=== PATIENT | female | born 1990 | race Caucasian/White ===

== ENCOUNTER 2021-01-31 14:20 | Outpatient (REF) | payer SELFPAY ==
[2021-01-31 15:34] LABS: HCT 40.2 % (36.0-46.0); MCH 29.3 pg (27.0-33.0); MCHC 32.3 % (32.0-36.0); MCV 90.7 fL (80-95); MPV 11.8 fL (8.0-11.0); Platelet Count 221 10^3/uL (130-400); RBC 4.43 10^6/uL (3.93-5.22); RDW 12.5 % (11.7-14.6); RDW-SD 41.3 fL; WBC 6.58 10^3/uL (4.4-10.8)
[2021-01-31 16:09] LABS: ALT 21 U/L (14-59); AST 14 U/L (15-37); Alkaline Phosphatase 57 U/L (46-116); Anion Gap 8.2 mmol/L (3-11); BUN 10 mg/dL (7-18); Bilirubin, Total 0.8 mg/dL (0.2-1.0); CO2 29.8 mmol/L (21.0-32.0); CREATININE 0.8 mg/dL (0.55-1.02); Chloride 104 mmol/L (98-107); Glucose 88 mg/dL (74-106); Potassium 4.1 mmol/L (3.5-5.1); Sodium 142 mmol/L (136-145); TSH (W/Ref FT4) 3.21 uIU/mL (0.36-3.74); Total Protein 6.9 g/dL (6.4-8.2)
== END 2021-01-31 14:21 | disposition home or self-care (01) ==
LOC: NCHCN 14:20
PROVIDERS: PCP Nurse Practitioner Family; Visit Provider Nurse Practitioner
DX: R14.0 Abdominal distension (gaseous) (principal); L65.9 Nonscarring hair loss, unspecified; Z83.49 Family history of other endocrine, nutritional and metabolic diseases
CPT/HCPCS: 80053; 85027; 84443

== ENCOUNTER 2022-02-27 04:14 | Outpatient (CLI) | payer MEDICAID, SELFPAY ==
[2022-02-27 16:29] LABS: Abs Immature Grans 0.05 10^3/uL (0.0-0.06); Absolute Basophil Count 0.03 10^3/uL (0.0-0.2); Absolute Eosinophil Count 0.23 10^3/uL (0.0-0.7); Absolute Lymphocyte Count 1.16 10^3/uL (1.2-3.4); Absolute Monocyte Count 0.74 10^3/uL (0.1-0.8); Absolute Neutrophil Count 8.63 10^3/uL (1.2-6.7); Basophils % 0.3; Eosinophils % 2.1; HCT 38.7 % (36.0-46.0); HGB 12.8 g/dL (11.2-15.7); Immature Grans % 0.5; Lymphocytes % 10.7; MCH 29.4 pg (27.0-33.0); MCHC 33.1 % (32.0-36.0); MCV 89 fL (80-95); MPV 12.1 fL (8.0-11.0); Monocytes % 6.8; Neutrophils % 79.6; Platelet Count 177 10^3/uL (130-400); RBC 4.35 10^6/uL (3.93-5.22); RDW 13.6 % (11.7-14.6); RDW-SD 44.5 fL; WBC 10.84 10^3/uL (4.4-10.8)
[2022-02-27 16:56] LABS: TSH (W/Ref FT4) 2.12 uIU/mL (0.36-3.74)
[2022-03-01 10:00] LABS: Hepatitis C Ab w Rflx HCV PCR Negative (Negative)
[2022-03-01 10:10] LABS: HIV-1/2 Ag & Ab Screen Negative (Negative)
[2022-03-01 10:13] LABS: Hepatitis B Surface Ag Negative (Negative)
[2022-03-01 11:39] LABS: Varicella IgG Antibody Positive (See Note)
[2022-03-01 11:43] LABS: Rubella IgG Ab (UVM) Positive (See Note)
[2022-03-02 15:47] LABS: Syphilis IgG w/Reflex Nonreactive (Nonreactive)
== END 2022-02-27 04:15 | disposition home or self-care (01) ==
LOC: LBO 04:15
PROVIDERS: PCP Nurse Practitioner Family; Visit Provider Advanced Practice Midwife
DX: Z34.91 Encounter for supervision of normal pregnancy, unspecified, first trimester (principal); Z83.49 Family history of other endocrine, nutritional and metabolic diseases
CPT/HCPCS: 36415; 86787; 86803; 86850; 86900; 86901; 87340; 87389; 84443; 85025; 86762; 86780

== ENCOUNTER 2022-02-27 15:49 | Outpatient (REF) | payer MEDICAID, SELFPAY ==
--- NOTE | 2022-02-27 15:22 | PAPFT_PTH ---
PATIENT: Anabel Joyner LOC: [facility] U#:[id number] AGE/SX: 31/F ROOM: RE02/27/[address]: Philomena Li CNM : 1990 BED: DIS: 02/27/2022 SPEC #: [id number] RECD: 02/27/22 17:23 STATUS: GEE REQ #: [id number] NICHOLAS: 02/27/22 15:[address]: Philomena Li DEPT: [facility] Cytology RECD BY: Savita Weeks ENTERED: 02/27/22 17:23 SP TYPE: PAPFT OTHR DR: DEMETRICE BROCK NP Tissues: 1 - CX/ENDOCX FOR PAP SMEARS Procedures: PAP THIN PREP/UVM Screening HPV DNA PROBE Comments: [id number]
[2022-02-27 18:50] LABS: *AMPHETAMINES SCREEN URINE Negative (Negative); *BARBITURATES SCREEN URINE Negative (Negative); *BENZODIAZEPINES SCREEN URINE Negative (Negative); Cannabinoids THC Negative (Negative); Cocaine Screen,Urine Negative (Negative); METHADONE URINE SCREEN Negative (Negative); OPIATES URINE SCREEN Negative (Negative)
[2022-02-27 18:53] LABS: Tricyclic Antidepressants Negative (Negative)
[2022-03-01 15:09] LABS: Chlamydia Result Negative (Negative); GC Result Negative (Negative)
[2022-03-10 14:33] LABS: Buprenorphine Negative ng/mL (Cutoff: 5.0); Norbuprenorphine Negative ng/mL (Cutoff: 2.5)
== END 2022-02-27 15:50 | disposition home or self-care (01) ==
LOC: LBN 15:49
PROVIDERS: PCP Nurse Practitioner Family; Visit Provider Advanced Practice Midwife
DX: Z34.91 Encounter for supervision of normal pregnancy, unspecified, first trimester (principal); Z12.4 Encounter for screening for malignant neoplasm of cervix; Z11.51 Encounter for screening for human papillomavirus (HPV); R87.810 Cervical high risk human papillomavirus (HPV) DNA test positive
CPT/HCPCS: 80307; 80348; 87491; 87591; 88142; 87086; 87624

== ENCOUNTER → 2022-03-27 02:39 | Outpatient (CLI) | payer MEDICAID, SELFPAY ==
--- NOTE | 2022-03-27 06:45 | DI.US_ITS ---
Exam(s) US OB 2-3 TRIMESTER EXAM: US OB 2-3 TRIMESTER CLINICAL HISTORY: anatomy US,z34.92. TECHNIQUE: Transabdominal obstetrical ultrasound was performed. COMPARISON: US POCUS EXAM from 02/07/2022 FINDINGS: There is a single viable intrauterine gestation with cardiac activity identified-134 bpm. Amniotic fluid: There is a normal amount of amniotic fluid. Placental location: The placenta is posterior grade 1,with no evidence of placenta previa.Distance fr om the tip of placenta to the internal cervical os is 5 cm on today's study. ANATOMY: A 3 vessel umbilical cord is seen. A four-chamber cardiac view was obtained. Right and left ventricular outflow tracts were imaged. There are no obvious abnormalities of the spinal column evident. There is no obvious abnormal ity of the anterior abdominal wall. stomach and urinary bladder are identified and there is no evidence of hydronephrosis. No abnormalities of the upper lip region are identified. There are small bilateral choroid ple xus cysts in the brain. Dating parameters place this at approximately 18 weeks and 4 days gestational age. BPD measures 18 weeks and 5 days HC measures 18 weeks and 4 days AC measures 18 weeks and 1 day FL measures 18 weeks and 6 days Estimated weight is 243 gm - Fetus is at the 59th percentile on the Hadlock scale. IMPRESSION:: Single viable intrauterine gestation which is approximately 18 weeks and 4 days gestati onal age, implying an YOANNA of August 24, 2022. There are bilateral small choroid plexus cysts noted. Should be repeated in a few weeks time. The p lacenta is posterior with no evidence of placenta previa. There is a normal amount of amniotic fluid. DATA REPOSITORY:
== END ==
PROVIDERS: PCP Nurse Practitioner Family; Visit Provider Advanced Practice Midwife
DX: Z34.92 Encounter for supervision of normal pregnancy, unspecified, second trimester (principal); Z3A.18 18 weeks gestation of pregnancy
CPT/HCPCS: 76805

== ENCOUNTER 2022-04-03 02:49 | Outpatient (CLI) | payer MEDICAID, SELFPAY ==
[2022-04-05 14:48] LABS: AFP 59.7 ng/mL; Calculated age at EDD 34 years; Cigarette smoking status non-Smoker; GA used in risk estimate Dates estimate; INHIBIN 167 pg/mL; IVF Pregnancy No; Initial or repeat testing Initial testing; Insulin dependent diabetes No; Maternal Weight 138 lbs; Number of Fetuses 1; Physician Phone Number 802-748-7300; RECOMMENDED FOLLOW UP None.; Results Summary Normal risk; hCG, TOTAL 45.3 IU/mL; hCG, TOTAL MoM 1.96 MoM; uE3 1.66 ng/mL; uE3 MoM 0.82 MoM
== END 2022-04-03 02:50 | disposition home or self-care (01) ==
LOC: LBO 02:49
PROVIDERS: PCP Nurse Practitioner Family; Visit Provider Advanced Practice Midwife
DX: Z34.92 Encounter for supervision of normal pregnancy, unspecified, second trimester (principal)
CPT/HCPCS: 36415; 81511

== ENCOUNTER 2022-06-05 02:36 | Outpatient (CLI) | payer MEDICAID, SELFPAY ==
[2022-06-05 11:14] LABS: HCT 37.1 % (36.0-46.0); HGB 12.2 g/dL (11.2-15.7); MCH 30.7 pg (27.0-33.0); MCHC 32.9 % (32.0-36.0); MCV 94 fL (80-95); MPV 11.4 fL (8.0-11.0); Platelet Count 155 10^3/uL (130-400); RBC 3.97 10^6/uL (3.93-5.22); RDW 13.2 % (11.7-14.6); RDW-SD 46.1 fL; WBC 9.68 10^3/uL (4.4-10.8)
[2022-06-05 11:27] LABS: Glucose,1 Hr (Glucola) 112 mg/dL (80-140)
== END 2022-06-05 02:37 | disposition home or self-care (01) ==
LOC: LBO 02:36
PROVIDERS: Advanced Practice Midwife; PCP Nurse Practitioner Family; Visit Provider Advanced Practice Midwife
DX: Z34.93 Encounter for supervision of normal pregnancy, unspecified, third trimester (principal)
CPT/HCPCS: 36415; 82950; 85027

== ENCOUNTER 2022-07-24 00:21 | Outpatient (CLI) | payer MEDICAID, SELFPAY ==
--- NOTE | 2022-07-24 07:15 | DI.US_ITS ---
Exam(s) US OB TERESA WEIGHT EXAM: US OB TERESA WEIGHT CLINICAL HISTORY: interval growth,COVID 19,U07.1,Z34.90. TECHNIQUE: Transabdominal obstetrical ultrasound performed. COMPARISON: US US OB 2-3 TRIMESTER from 03/27/2022 FINDINGS: Number of fetuses: 1 position: CEPHALIC Placental location: There is a grade 2-3 placental a on the maternal left side. No evidence of previ a. BIOMETRIC DATA: BPD: 8.68cm, 35weeks HC: 32.09cm, 36weeks 1day AC: 31.86cm, 35weeks 5days FL: 6.67cm, 34weeks 2days EFW: 2,659.74g, 5lb 14.72oz, 46.6% Composite Age: 35weeks 2days YOANNA: 08/26/2022 Heart Rate: 130bpm Amniotic fluid index: 13.99cm. Visually, amount of fluid is within normal limits. IMPRESSION: 1. Single live intrauterine gestation as above. 2. Estimated weight is 2660gms. This is the 47th percentile. 3. Amniotic fluid index is 14 cm. Visually within normal limits. DATA REPOSITORY:
== END 2022-07-24 00:41 ==
LOC: DI 00:22
PROVIDERS: PCP Nurse Practitioner Family; Visit Provider Advanced Practice Midwife
DX: U07.1 COVID-19 (principal); Z34.90 Encounter for supervision of normal pregnancy, unspecified, unspecified trimester
CPT/HCPCS: 76816

== ENCOUNTER 2022-08-02 15:43 | Outpatient (REF) | payer MEDICAID, SELFPAY ==
[2022-08-02 18:33] LABS: *AMPHETAMINES SCREEN URINE Negative (Negative); *BARBITURATES SCREEN URINE Negative (Negative); *BENZODIAZEPINES SCREEN URINE Negative (Negative); Cannabinoids THC Negative (Negative); Cocaine Screen,Urine Negative (Negative); METHADONE URINE SCREEN Negative (Negative); OPIATES URINE SCREEN Negative (Negative)
[2022-08-02 18:34] LABS: Tricyclic Antidepressants Negative (Negative)
[2022-08-10 18:52] LABS: Buprenorphine Negative ng/mL (Cutoff: 5.0); Norbuprenorphine Negative ng/mL (Cutoff: 2.5)
== END 2022-08-02 15:44 | disposition home or self-care (01) ==
LOC: LBN 15:43
PROVIDERS: PCP Nurse Practitioner Family; Visit Provider Advanced Practice Midwife
DX: Z34.93 Encounter for supervision of normal pregnancy, unspecified, third trimester (principal); Z36.85 Encounter for antenatal screening for Streptococcus B; Z3A.36 36 weeks gestation of pregnancy
CPT/HCPCS: 80307; 80348; 87081

== ENCOUNTER 2022-09-01 07:32 | Outpatient (CLI) | payer MEDICAID, SELFPAY ==
[2022-09-01 10:32] VITALS: BP 104/75; PULSE 80; TEMP 36.7
--- NOTE | 2022-09-01 12:07 | W.OBNST ---
Date of service: 09/01/22 Time of Service: 12:07 NST Evaluation Reason for NST Reasons for Nonstress Test: POSTDATES Gestational Age Gestational Age in Weeks and Days: 41 Weeks and 0Days Test and Monitor Explained Test/Monitor Explained: Test Explained, Monitor Explained and Patient Verbalized Understanding Vital Signs Blood Pressure: 104/75 Pulse: 80 Temperature: 98.1 F Urine Results Urine Protein: Negative Urine Ketones: Negative Urine Glucose: Negative Urine Blood: Negative NST Information Date on Monitor: 09/01/22 Time on Monitor: 10:32 Date off Monitor: 09/01/22 Time off Monitor: 11:44 Total Time on Monitor: 72 NST Interventions: PO Hydration NST Evaluation Patient States Movement: Present FHR Baseline: 140 Variability: Moderate 6-25 bpm Accelerations: 15x15 Decelerations: None NST Results: Reactive Note Ultrasound Done: TERESA (postdates) Largest Vertical Pocket: 4.1 Total TERESA: 10.6 Other Pertinent Findings: Heart Rate (131) and Presentation (cephalic, ROP) Coding for TERESA w/NST: Completed Exam. NST Note Note: 41 wks surveillance is reassuring Cvx is unfavorable at ft/th posterior Plan is repeat NST in 3 days, scheduled for IOL on 09/06 NST Reviewed and Verified by: Meredith Alegria
[2022-09-01 12:08] VITALS: BP 104/75; PULSE 80; TEMP 36.7
[2022-09-01 14:59] VITALS: BP 107/67; PULSE 96
[2022-09-03 09:30] VITALS: BP 110/70; PULSE 80
== END 2022-09-01 12:09 | disposition home or self-care (01) ==
LOC: BCD 07:37 → OBS 10:10 → BCD 10:28 → NUR 10:29 → OBS 10:39
PROVIDERS: PCP Nurse Practitioner Family; Visit Provider Advanced Practice Midwife
DX: O48.0 Post-term pregnancy (principal); Z3A.41 41 weeks gestation of pregnancy
CPT/HCPCS: 59025

== ENCOUNTER 2022-09-04 07:21 | Outpatient (CLI) | payer MEDICAID, SELFPAY ==
[2022-09-04 10:05] VITALS: BP 113/77; PULSE 83; TEMP 37
[2022-09-04 10:21] VITALS: BP 113/77; PULSE 83
--- NOTE | 2022-09-04 10:57 | W.OBNST ---
Date of service: 09/04/22 Time of Service: 10:57 NST Evaluation Reason for NST Reasons for Nonstress Test: POSTDATES Gestational Age Gestational Age in Weeks and Days: 41 Weeks and 3Days Test and Monitor Explained Test/Monitor Explained: Test Explained, Monitor Explained and Patient Verbalized Understanding Vital Signs Blood Pressure: 113/77 Pulse: 83 Temperature: 98.6 F NST Information Date on Monitor: 09/04/22 Time on Monitor: 10:00 Date off Monitor: 09/04/22 Time off Monitor: 10:26 Total Time on Monitor: 26 NST Interventions: PO Hydration NST Evaluation Patient States Movement: Present FHR Baseline: 145 Variability: Moderate 6-25 bpm Accelerations: 15x15 Decelerations: None NST Results: Reactive Note Ultrasound Done: N/A. NST Note Note: Scheduled for IOL on 09/06/22 NST Reviewed and Verified by: Meredith Alegria
[2022-09-04 10:58] VITALS: BP 113/77; PULSE 83; TEMP 37
== END 2022-09-04 10:31 | disposition home or self-care (01) ==
LOC: BCD 07:22 → OBS 10:04
PROVIDERS: PCP Nurse Practitioner Family; Visit Provider Advanced Practice Midwife
DX: O48.0 Post-term pregnancy (principal); Z3A.41 41 weeks gestation of pregnancy
CPT/HCPCS: 59025

== ENCOUNTER 2022-09-06 09:58 | Inpatient (IN) | payer MEDICAID, SELFPAY ==
[2022-09-06] VITALS (7 sets, daily range): BP systolic 100–145; BP diastolic 55–81; PULSE 64–92; RESP 16–18; TEMP 36.4–36.7; O2SAT 99
[2022-09-06 10:42] LABS: HCT 36.9 % (36.0-46.0); HGB 12.2 g/dL (11.2-15.7); MCH 30.3 pg (27.0-33.0); MCHC 33.1 % (32.0-36.0); MCV 92 fL (80-95); MPV 11.9 fL (8.0-11.0); Platelet Count 127 10^3/uL (130-400); RBC 4.03 10^6/uL (3.93-5.22); RDW 13.2 % (11.7-14.6); RDW-SD 44.4 fL; WBC 8.45 10^3/uL (4.4-10.8)
[2022-09-06] MEDS: miSOPROStol 25 MCG TAB VG (10:42)
--- NOTE | 2022-09-06 10:47 | HPE_ITS ---
Date of service: 09/06/22 Time of Service: 10:15 OB-HPI Labor/Delivery History of Present Illness Reason for Visit: Cervical Ripening Chief Complaint: Scheduled Induction of Labor Indication for Induction: Post Date (41w5d by LMP). YOANNA Calculator Estimated Delivery Date Method Current WG Current Estimate 08/25/22 LMP (Certain) 41w 5d Other Estimates 08/20/22 Ultrasound #1 42w 3d Comments: Anabel and Kyle present for induction of labor at 41w5d due to post term . She is feeling well. Is hoping to use minimal interventions to achieve labor. Denies ROM or show. Has been having some contractions. Reports active baby. Initial NST is reactive. Agrees to misoprostol for cervical ripening. KH History of Present Expected Delivery Route/Plan - CNM FOB/ - Kyle Ar BG (per u/s)- GBS neg Would like nitrous & access to tub, waterbirth sounds appealing Hopes FOB can cut the cord this time; declines PP pit if safe to do so Specific Issues/Plan 1. Unvaccinated against covid, Covid+ 01/2022 at 10 wks gestation, ASA recom mended, 32 wk US- 46 %ile and TERESA 13 2. Declines genetic testing and or CF/SMA; Accepts Quad screen = low risk x3 3. Hx anxiety/depression pushed through it for 8 months, no meds, declines [facility] referral 3a. Prefers to avoid pitocin after baby is delivered as she is concerned it may increase her anxiety 3b. Encourage pt to communicate about her mood status regularly, especially 4. Calm magnesium powder for chronic constipation and mood - takes probiotic. 5. Pos. high risk HPV - yearly paps recommended 6. Bilateral choroid plexus cysts on anatomy US, QUAD scn is nml 6a. Offered [facility] level 2 and MFM consult, declines 6b. will recheck [employer] at 32 wk growth ultrasound in June/ Patient declines due to having had [facility] US 6c. US 35 w 3d 47% TERESA 14 cm VTX 7. Umbilical hernia noted, comfort measures reviewed, surgical consult Assessment: History Reviewed & Current Informed Consent Informed Consent: Induction of Labor (misoprostol, cook catheter, pitocin all reviewed) and Risk,Benefits,Alternatives Discussed Review of Systems All systems reviewed & are unremarkable except as noted in HPI and below PFSH All Active Problems Choroid plexus cyst, , affecting care of mother, antepartum, single gestation (Acute) Umbilical hernia (Acute) History of depression, currently (Acute) COVID-19 virus infection (Acute) COVID+ at 10 wks gestation Chronic constipation (Acute) (Acute) Medical History Abnormal Papanicolaou smear of cervix with positive human papilloma virus (HPV) test acne nec as per records.HE Anemia affecting first (04/18/17) Family history of thyroid disease Heart murmur pt states she was told Afib.HE Palpitations Ultrasound recheck of choroid plexus cyst, antepartum Family History Mother Essential hypertension Hyperlipidemia Hypertension Father Mental disorder Depression and anxiety, no meds Asthma Depression Heart disease Maternal Grandmother Neoplasm Paternal Grandmother Breast cancer Paternal Grandfather Colon cancer Maternal Grandfather Dementia Stroke Other Mayte's thyroiditis Thyroid disease Social History Smoking/Tobacco Use Status: Never Smoking risk assessment performed?: Yes Alcohol Intake: never Drug use: Never Do you feel safe in your relationship?: Yes History History 3 Para 1 Hx # Term Pregnancies 1 Multiple births 0 Hx # Pregnancies 0 Ectopic pregnancies 0 AB induced 0 Hx Number of Living Children 1 AB spontaneous 1 Past Pregnancies Del. Date GA/Weeks # Preg Succ Route Wgt Sex Labor Lgth Anesth esia Location Prov Complic 05/17/16 No No 06/21/17 40 No Yes vaginal 6 lb Female 24 Anea, an d Dr Lopez Delivery Date: 06/21/17 Last Updated by: Philomena Garcia CNM Anila, HR decelerations, vacuum extractions Meds Allergies and Home Medications Allergies Allergy/AdvReac Type Severity Reaction Status Date / Time No Known Drug Allergies Allergy Unverified 09/06/22 10:54 Home Medications Medication Instructions Recorded Confirmed Type vit no.95-ferrous 1 ea PO DAILY 11/08/16 09/06/22 History fumarate 28 mg-folic acid 800 mcg tablet () Blood Builder 10 mg PO QD #30 tab-caps 05/01/17 09/06/22 Clinic bacillus coagulans-inulin 1 1 cap PO 1XD 01/16/22 09/06/22 History billion cell-250 mg capsule (Probiotic with Prebiotic) aspirin 81 mg tablet,delayed 81 mg PO DAILY 04/24/22 09/06/22 History release (Adult Aspirin Regimen) magnesium oxide 1 mg PO DAILY 04/24/22 09/06/22 History Exam Physical Exam Vital signs: Temp Pulse Resp BP Pulse Ox 97.5 F L 92 H 16 111/77 99 09/06/22 10:17 09/06/22 10:17 09/06/22 10:17 09/06/22 10:17 09/06/22 10:17 Vital Signs Reviewed: Yes Constitutional Constitutional: no acute distress and average body habitus Detailed Labor and Delivery Exam Dilation: 1 Effacement (%): 50 station: -2 Position: LELAND Cervix position: posterior Consistency: soft Sood Score: Cervical Points Exam 0 1 2 3 Dilation Closed 1-2cm 3-4 cm 5-6cm Effacement 0-30% 40-50% 60-70% 80% Consistency Firm Medium Soft Station -3 -2 -1,0 +1,+2 Position Posterior Mid Anterior SOOD Score(Cervical Ripeness Score): 5 Amniotic Membrane Status: Intact Contraction Frequency(min): irregular Contraction Duration(sec): 40-60 Contraction Intensity: Mild Fetus A Heart Rate Baseline: 120 Monitor Accelerations: 15 X 15 Monitor Decelerations: None Variability: Moderate (6-25 BPM) Categories: Category I Est. Weight: 7 lb HEENT Exam HEENT Exam: Normal Neck Exam Neck Exam: Normal (visual exam) Chest/Brest/Axilla Exam Chest Exam: Normal Breast Exam Breast Exam: Normal (normal visual exam) Respiratory Exam Respiratory Exam: Normal Cardiovascular Exam Cardiovascular Exam: Normal Abdominal Exam Abdominal Exam: Normal (gravid uterus, size equals dates, umbilical hernia noted, not bulging) Rectal Exam Rectal Exam: Not Done Exam Exam: Normal Extremities Exam Extremities Exam: Normal Back/Spine/Pelvis Exam Back Exam: Not Done Pelvis Adequate: Yes Skin Exam Skin Exam: Normal Neurological Exam Neurological Exam: Normal Psychiatric Exam Psychiatric Exam: Normal (has history of PP anxiety, no current medications) Results Results Group Beta Strep: Negative Blood Type: O+ Rubella Status: Immune Varicella Immunity: Immune Lab Results: 1 hour glucose 112, AFP normal risk, anatomy US indicated choriod plexus cysts, patient declined MFM consultation Abnormal Lab Findings: Abnormal Labs 09/06/22 10:30 Plt Count 127 L MPV 11.9 H Risk Assessment Risk for Shoulder Dystocia Historical/Initial OB: NEGATIVE FOR: Pelvic Abnormality, Pre- BMI>30, Previous Shoulder Dystocia or Previous Macrosomia 40 Weeks: POSTIVE FOR: Post Dates; NEGATIVE FOR: EFW> 4500 gms or Maternal Weight Gain >40lb Date/Initial: 02/27/22 Delivery Plan @ 36wks: NVD Delivery Plan @ 40 wks: NVD expected, normal weight gain and no macrosomia expected. Risk for Pre-Eclampsia Yes, if one or more: NEGATIVE FOR: Hx Pre-E/Gest HTN, Chronic HTN, Multiple Gestation, Pre-gestational DM, Renal Disease, Systemic Lupus or APA Syndrome Yes, if 2 or more: NEGATIVE FOR: Nulliparity, Age>= 35 yrs, >10yr btwn pregnancies, BMI>30, ethinicty, Mother/Sister w/ Pre-E or Previous IUGR Risk for Post- Hemorrhage Initial: NEGATIVE FOR: Multiple Gestation, Previous PPH, Known Clotting Deficiency, Grand Multiparity or Anticoagulation At Risk?: No Counseled re: Active Management: Yes (patient prefers to treat only if indicated, not use active management) Date/Initials: 09/06/22 Risks Reviewed Risks Reviewed Upon Admission: Yes
--- NOTE | 2022-09-06 13:03 | W.PM.OBNL1 ---
Date of service: 09/06/22 Time of Service: 13:03 Informed Consent Informed Consent: Induction of Labor (misoprostol, cook catheter, pitocin all reviewed) and Risk,Benefits,Alternatives Discussed Pelvic Exam Dilation: 2 Effacement (%): 50 station: -2 Contractions Monitor Mode: External Contraction Frequency(min): 2-4 Contraction Duration(sec): 50-60 Intensity: Mild/Moderate Fetus A Monitor: External (US) Heart Rate Baseline: 120 Presentation: Vertex Variability: Moderate (6-25 BPM) Categories: Category I Accelerations: Present Decelerations: None Assessment and Plan Assessment and plan (1) Encounter for planned induction of labor: Status: Acute Assessment and plan: 1. Some cervical change 2 hours post vaginal misoprostol 2. Cook catheter placed with 60cc in both balloons, tolerated well 3. Will reassess in 2-4 hours or prn 4. Discussed option of adding Misoprostol PO/SL in 2-3 hours if contractions have spaced.KH Objective Abnormal lab results 09/06/22 Range/Units 10:30 Plt Count 127 L (130-400) 10^3/uL MPV 11.9 H (8.0-11.0) fL Temp Pulse Resp BP Pulse Ox 97.5 F L 92 H 16 111/77 99 09/06/22 10:17 09/06/22 10:17 09/06/22 10:17 09/06/22 10:17 09/06/22 10:17 Laboratory Results WBC 8.45 10^3/uL (4.4-10.8) 09/06/22 10:30 RBC 4.03 10^6/uL (3.93-5.22) 09/06/22 10:30 Hgb 12.2 g/dL (11.2-15.7) 09/06/22 10:30 Hct 36.9 % (36.0-46.0) 09/06/22 10:30 MCV 92 fL (80-95) 09/06/22 10:30 MCH 30.3 pg (27.0-33.0) 09/06/22 10:30 MCHC 33.1 % (32.0-36.0) 09/06/22 10:30 RDW 13.2 % (11.7-14.6) 09/06/22 10:30 Plt Count 127 10^3/uL (130-400) L 09/06/22 10:30 MPV 11.9 fL (8.0-11.0) H 09/06/22 10:30 Patient ABO/Rh O Positive 09/06/22 10:30 Antibody Screen NEGATIVE 09/06/22 10:30 Vital Signs Reviewed: Yes Subjective Interval history since last seen: Pleased with some cervical change and wanted to move forward with Cook catheter which she tolerated well. KH Interventions Induction Indication: Post Date, Type of Induction: Cervical Ripening (Had 25 mcg misoprostol vaginally and now Cook catheter is placed), Results Hemoglobin/Hematocrit: Hgb 12.2 g/dL (11.2-15.7) 09/06/22 10:30 Hct 36.9 % (36.0-46.0) 09/06/22 10:30 Abnormal Lab Findings: Abnormal Labs 09/06/22 10:30 Plt Count 127 L MPV 11.9 H
--- NOTE | 2022-09-06 16:03 | PGE_ITS ---
Date of service: 09/06/22 Time of Service: 15:50 Informed Consent Informed Consent: Induction of Labor (misoprostol, cook catheter, pitocin all reviewed) and Risk,Benefits,Alternatives Discussed Pelvic Exam Comments: VE deferred Contractions Monitor Mode: Palpation Contraction Frequency(min): 2-5 Contraction Duration(sec): 40-60 Intensity: Mild/Moderate Fetus A Monitor: Doppler (see nursing documentation) Assessment and Plan Assessment and plan (1) Encounter for planned induction of labor: Status: Acute Assessment and plan: 1. continue present management, Cook catheter due to be removed at approximately 0045 09/07. 2. Billing Manager has offered continued PO misoprostol while Cook catheter is in place but patient prefer to continue without medication at this time. 3. Dr. Mullins is aware of patient status and plan of care. KH Objective Abnormal lab results 09/06/22 Range/Units 10:30 Plt Count 127 L (130-400) 10^3/uL MPV 11.9 H (8.0-11.0) fL Temp Pulse Resp BP Pulse Ox 97.5 F L 92 H 16 111/77 99 09/06/22 10:17 09/06/22 10:17 09/06/22 10:17 09/06/22 10:17 09/06/22 10:17 Laboratory Results WBC 8.45 10^3/uL (4.4-10.8) 09/06/22 10:30 RBC 4.03 10^6/uL (3.93-5.22) 09/06/22 10:30 Hgb 12.2 g/dL (11.2-15.7) 09/06/22 10:30 Hct 36.9 % (36.0-46.0) 09/06/22 10:30 MCV 92 fL (80-95) 09/06/22 10:30 MCH 30.3 pg (27.0-33.0) 09/06/22 10:30 MCHC 33.1 % (32.0-36.0) 09/06/22 10:30 RDW 13.2 % (11.7-14.6) 09/06/22 10:30 Plt Count 127 10^3/uL (130-400) L 09/06/22 10:30 MPV 11.9 fL (8.0-11.0) H 09/06/22 10:30 Patient ABO/Rh O Positive 09/06/22 10:30 Antibody Screen NEGATIVE 09/06/22 10:30 Vital Signs Reviewed: Yes Subjective Interval history since last seen: No concerns, is still feeling contractions and does not want any additional misoprostol at this time. Cook catheter remains intact. KH Results Hemoglobin/Hematocrit: Hgb 12.2 g/dL (11.2-15.7) 09/06/22 10:30 Hct 36.9 % (36.0-46.0) 09/06/22 10:30 Abnormal Lab Findings: Abnormal Labs 09/06/22 10:30 Plt Count 127 L MPV 11.9 H
--- NOTE | 2022-09-06 16:59 | W.PM.OBNL1 ---
Date of service: 09/06/22 Time of Service: 16:45 Informed Consent Informed Consent: Induction of Labor (misoprostol, cook catheter, pitocin all reviewed) and Risk,Benefits,Alternatives Discussed Pelvic Exam Dilation: 5 Effacement (%): 60 station: -2 Cervix Position: posterior Consistency: soft Contractions Monitor Mode: Palpation Contraction Frequency(min): 2-4 Contraction Duration(sec): 60 Intensity: Moderate Fetus A Monitor: Doppler Heart Rate Baseline: 150 Assessment and Plan Assessment and plan (1) Encounter for planned induction of labor: Status: Acute Assessment and plan: 1. cook catheter came out on its own, VE 5/60/-2 soft 2. Continues to have some contractions will continue to observe with repeat VE in 2 hours or less 3. Expect NVD. KH Objective Abnormal lab results 09/06/22 Range/Units 10:30 Plt Count 127 L (130-400) 10^3/uL MPV 11.9 H (8.0-11.0) fL Temp Pulse Resp BP Pulse Ox 97.5 F L 92 H 16 111/77 99 09/06/22 10:17 09/06/22 10:17 09/06/22 10:17 09/06/22 10:17 09/06/22 10:17 Laboratory Results WBC 8.45 10^3/uL (4.4-10.8) 09/06/22 10:30 RBC 4.03 10^6/uL (3.93-5.22) 09/06/22 10:30 Hgb 12.2 g/dL (11.2-15.7) 09/06/22 10:30 Hct 36.9 % (36.0-46.0) 09/06/22 10:30 MCV 92 fL (80-95) 09/06/22 10:30 MCH 30.3 pg (27.0-33.0) 09/06/22 10:30 MCHC 33.1 % (32.0-36.0) 09/06/22 10:30 RDW 13.2 % (11.7-14.6) 09/06/22 10:30 Plt Count 127 10^3/uL (130-400) L 09/06/22 10:30 MPV 11.9 fL (8.0-11.0) H 09/06/22 10:30 Patient ABO/Rh O Positive 09/06/22 10:30 Antibody Screen NEGATIVE 09/06/22 10:30 Subjective Interval history since last seen: Anabel reports cook catheter came out. Continues to have contractions and prefers to defer any further interventions at this time. KH Results Hemoglobin/Hematocrit: Hgb 12.2 g/dL (11.2-15.7) 09/06/22 10:30 Hct 36.9 % (36.0-46.0) 09/06/22 10:30 Abnormal Lab Findings: Abnormal Labs 09/06/22 10:30 Plt Count 127 L MPV 11.9 H
[2022-09-07] VITALS (15 sets, daily range): BP systolic 101–122; BP diastolic 58–77; PULSE 18–87; RESP 18–20; TEMP 36.6–36.9; O2SAT 97
--- NOTE | 2022-09-07 00:06 | OBVDS_ITS ---
Date of service: 09/06/22 Time of Service: 23:59 OB Labor/ Delivery Information Baby A Delivery Delivery Method: Spontaneaous Presentation: Vertex Vertex Position: Right Occipital Anterior Cord Description-Baby A: 3 Vessels, Nuchal Cord (around neck times 1, and left arm X 1 delivered through cord, unable to reduce.) and Clamped/Cut Amniotic Fluid: Clear Estimated Blood Loss: 100 Delivery Outcome: Liveborn Infant Complications: none Transferred: Remains with Mother Providers Nurse Customer Professional: Philomena Li Nurse: Esperanza Sheppard Nurse: Ange Urena Labor/Delivery Information Number of Babies in Womb: 1 Steroids Given: None Reason Steroids Not Administered: N/A Group Beta Strep: Negative Antibiotics Administered: No Rubella Status: Immune Blood Type: O+ Varicella Immunity: Immune Shoulder Dystocia: No Note: Anabel presented for induction of labor at 41w5d. Misoprostol 25 mcg to posterior fornix of cervix and 2 hours later Cook catheter placed and labor ensued. She required no further labor augmentation and progressed to 10 cm at 2317 on 09/06/22 with urge to push. FHR had been in normal ranges by doppler throughout labor 120-130. Second stage huddle was held and risks for SD, PPH were noted to be low. Anabel pushed in right side laying position and delivered a live female a t 2342 over intact perineum. There was a nuchal cord times 1 tight and also around left arm and was unable to be reduced. Mother pushed baby out with next contraction and baby was freed of cord quickly and placed skin to skin. 8 at 1 minute and 9 at 5 minutes. Anabel had requested no Pitocin IM unless indicated by uterine atony or heavy bleeding. Placenta delivered via mae mechanism, intact at 2352. Fundus was firm at U-1 immediately. EBL 100cc. Perineum and vaginal inspected and noted to be intact. Anabel plans to breast feed her daughter. She is planning condoms for contraception. Expect normal PP course. Baby's weight 7lb 11oz. Stages of Labor Onset of Labor Date: 09/06/22 Complete Dilatation Date: 09/06/22 Complete Dilatation Time: 23:17 Infant Delivery Date-Baby A: 09/06/22 Delivery Time-Baby A: 23:42 Labor Stage 2 Duration: 25 minutes Placenta Delivery Date-Baby A: 09/06/22 Placenta Delivery Time-Baby A: 23:52 Labor-Stage 3 Duration: 10 minutes Placenta Cultured: No Placenta Status: Delivered Baby A Infant Gender: Female Gestational Status: Term (39-41.6 wks) Gestational Age in Weeks/Days: 41 Weeks and 5 Days Score-1 Minute Interval(Baby A) Heart Rate-1 minute: 100 BPM or Greater Respiratory Effort- 1 minute: Spontaneous/Strong Cry Muscle Tone-1 minute: Minimal Flexion/Extension Reflex Response-1 minute: Prompt Response Color-1 minute: Bluish Hands or Feet Total Score-1 minute: 8 Score-5 Minute Interval(Baby A) Heart Rate- 5 minute: 100 BPM or Greater Respiratory Effort-5 minute: Spontaneous/Strong Cry Muscle Tone-5 minute: Active Movement Reflex Response-5 minute: Prompt Response Color-5 minute: Bluish Hands or Feet Total Score- 5 minute: 9
--- NOTE | 2022-09-07 08:29 | W.PM.OBPNV1 ---
Date of service: 09/07/22 Time of Service: 08:10 Assessment and Plan Assessment and plan (1) care following vaginal delivery: Status: Acute Assessment and plan: 1. Stable PP state 2. Continue present management and expect discharge to home tomorrow. (2) Lactating mother: Status: Acute Assessment and plan: 1. Breast feeding going well. Continue present management. Subjective Subjective Interval history: Anabel is feeling well. Baby is breast feeding well. No concerns. Patient's Mood: happy [place] baby status: Doing well, Nursing well and Strong Bonding Observed Exam Physical Exam Vital signs: Temp Pulse Resp BP Pulse Ox 98.2 F 66 20 109/71 97 09/07/22 08:05 09/07/22 08:05 09/07/22 08:05 09/07/22 08:05 09/07/22 08:05 Vital Signs Reviewed: Yes Constitutional Constitutional: no acute distress, average body habitus and cooperative HEENT Exam HEENT Exam: Normal Neck Exam Neck Exam: Normal (normal visual inspection) Respiratory Exam Respiratory Exam: Normal Cardiovascular Exam Cardiovascular Exam: Normal Abdominal Exam Abdomen: Other (normal exam) Fundal Exam Fundus: Below Umbilicus and Firm Comment: small lochia noted. Rectal Exam Rectal Exam: Not Done Exam Perineum: Intact and Normal Extremities Exam Extremity Exam: Normal (denies calf tenderness) and Full ROM Back/Spine/Pelvis Exam Back Exam: Normal Skin Exam Skin Exam: Normal Neurological Exam Neurological Exam: Normal Psychiatric Exam Psychiatric Exam: Normal Results Hemoglobin/Hematocrit: Hgb 12.2 g/dL (11.2-15.7) 09/06/22 10:30 Hct 36.9 % (36.0-46.0) 09/06/22 10:30 Abnormal Lab Findings: Abnormal Labs 09/06/22 10:30 Plt Count 127 L MPV 11.9 H
[2022-09-08 09:20] VITALS: BP 104/69; PULSE 69; RESP 16; TEMP 36.6; O2SAT 97
--- NOTE | 2022-09-08 10:03 | W.PM.OBDISCH ---
Date of service: 09/08/22 Time of Service: 09:00 DS: Diagnosis Discharge Diagnosis (1) care following vaginal delivery: Status: Acute Asessment and Plan: 1. Normal PP course, feeling well 2. PP warning signs reviewed 3. RTO in 2 and 6 weeks PP. KH (2) Lactating mother: Status: Acute Asessment and Plan: 1. Breast feeding well established 2. Will follow up with pediatrics as needed. Discharge Plan Disposition Patient Disposition: Home Condition: Good Discharge Details Reason For Visit: Cervical Ripening Admit Date/Time: 09/06/22 09:58 Admit Provider: Philomena Li Attending Provider: Philomena Li Primary Care Provider: DEMETRICE BROCK Hospital Course Hospital Course: Induction of labor with NVD of live female over intact perineum. Normal PP course in hospital. Home Meds and New Rx's Prescriptions: New docusate sodium [Colace] 100 mg Capsule 100 mg PO BID PRN PRNQty: 60 0RF ibuprofen 600 mg Tablet 600 mg PO Q6H PRN PRNQty: 100 0RF Continued magnesium oxide 240 mg magnesium powder in packet 1 mg PO DAILY Patient Comments: 04/24/22- pt taking calm magnesium 1.5 scoops per day. Probiotic with Prebiotic 1 billion-250 cell-mg capsule 1 cap PO 1XD PNV cmb#95-ferrous fumarate-FA [] 1 EACH tablet 1 ea PO DAILY Blood Builder 10 mg PO QD Qty: 30 2RF Discontinued aspirin [Adult Aspirin Regimen] 81 mg tablet,delayed release (DR/EC) 81 mg PO DAILY Patient Comments: 04/24/22. Pt reports taking one 81 mg tab alternating with two 81 mg tab (162 mg) every other day. Discharge Instructions Instructions: Ibuprofen (By mouth), Laxative, Stool Softeners (By mouth), Depression (GEN) Stand Alone Forms: BC Instructions, BC Post Vaginal Deliver Activity:: Activity as Tolerated Equipment/Supplies:: No Equipment Needed Diet:: As Tolerated Discharge Orders Discharge Orders: Discharge Order (Routine); Ordered 09/08/22 Ordered By: Philomena Li OB:DS Summary Summary Vaginal Delivery Method: Spontaneaous Episiotomy Description: None Laceration Description: None Laceration Extension: N/A Contraception Discussed Contraception Discussed: Yes Contraceptive Plan: Foam/Condoms, [place] Infant Gender-Baby A: Female weight: 7 lb 11 oz Disposition of Baby A: Home Status at Discharge Functional status at discharge: independent ambulation Overall status at discharge: patient is back to baseline Mental Status: mental status grossly normal Speech and Movement: speech and movement normal Mood: congruent mood Affect: normal affect Time Spent with Patient providing and/or coordinating discharge services: Less than 30 minutes Exam Physical Exam Vital signs: Temp Pulse Resp BP Pulse Ox 97.9 F 69 16 104/69 97 09/08/22 09:20 09/08/22 09:20 09/08/22 09:20 09/08/22 09:20 09/08/22 09:20 Vital Signs Reviewed: Yes Constitutional Constitutional: no acute distress, average body habitus and cooperative HEENT Exam HEENT Exam: Normal Neck Exam Neck Exam: Normal (normal visual inspection) Respiratory Exam Respiratory Exam: Normal Cardiovascular Exam Cardiovascular Exam: Normal Abdominal Exam Abdomen: Other (normal exam) Fundal Exam Fundus: Below Umbilicus and Firm Comment: small lochia noted. KH Rectal Exam Rectal Exam: Not Done Exam Perineum: Intact and Normal Extremities Exam Extremity Exam: Normal (denies calf tenderness) and Full ROM Back/Spine/Pelvis Exam Back Exam: Normal Skin Exam Skin Exam: Normal Neurological Exam Neurological Exam: Normal Psychiatric Exam Psychiatric Exam: Normal PFSH All Active Problems Lactating mother (Acute) care following vaginal delivery (Acute) Umbilical hernia (Acute) History of depression, currently (Acute) (Acute) Medical History Abnormal Papanicolaou smear of cervix with positive human papilloma virus (HPV) test acne nec as per records.HE Anemia affecting first (04/18/17) Choroid plexus cyst, , affecting care of mother, antepartum, single gestation Chronic constipation COVID-19 virus infection COVID+ at 10 wks gestation Encounter for planned induction of labor Family history of thyroid disease Heart murmur pt states she was told Afib.HE Palpitations Thrombocytopenia affecting (~09/06/22) Plt 127 on admission at 41w5d, 155 at 28wk, 177 initial OB Ultrasound recheck of choroid plexus cyst, antepartum Family History Mother Essential hypertension Hyperlipidemia Hypertension Father Mental disorder Depression and anxiety, no meds Asthma Depression Heart disease Maternal Grandmother Neoplasm Paternal Grandmother Breast cancer Paternal Grandfather Colon cancer Maternal Grandfather Dementia Stroke Other Mayte's thyroiditis Thyroid disease Social History Smoking/Tobacco Use Status: Never Smoking risk assessment performed?: Yes Alcohol Intake: never Drug use: Never Do you feel safe in your relationship?: Yes History History 3 Para 1 Hx # Term Pregnancies 1 Multiple births 0 Hx # Pregnancies 0 Ectopic pregnancies 0 AB induced 0 Hx Number of Living Children 1 AB spontaneous 1 Past Pregnancies Del. Date GA/Weeks # Preg Succ Route Wgt Sex Labor Lgth Anesthesia Location Prov Complic 05/17/16 No No 06/21/17 40 No Yes vaginal 6 lb Female 24 Anea, and Dr Lopez Delivery Date: 06/21/17 Last Updated by: Philomena Garcia CNM Anila, HR decelerations, vacuum extractions DS: Data Vitals/I&O Vitals and I&O: Vital Signs Temperature 97.9 F 09/08/22 09:20 Temperature Source Oral 09/08/22 09:20 Pulse 69 09/08/22 09:20 Pulse Rhythm Regular 09/08/22 09:20 Respiratory Rate 16 09/08/22 09:20 Blood Pressure 104/69 09/08/22 09:20 Blood Pressure Mean 80 09/08/22 09:20 Pulse Oximetry 97 09/08/22 09:20 Oxygen Delivery Method Room Air 09/06/22 10:17 Oxygen Flow Rate 0 09/06/22 10:17 Pain Level 0 09/08/22 09:20 Comment bp taken durimg contraction 09/06/22 22:05 Intake & Output 09/07/22 09/07/22 09/08/22 11:59 23:59 11:59 Other: Urine Color Yellow
== END 2022-09-08 12:25 | disposition home or self-care (01) | DRG 807 ==
PROVIDERS: Admitting Provider Advanced Practice Midwife; PCP Nurse Practitioner Family; Visit Provider Advanced Practice Midwife
DX: O48.0 Post-term pregnancy (principal); Z37.0 Single live birth; Z3A.41 41 weeks gestation of pregnancy; O35.03X0 Maternal care for (suspected) central nervous system malformation or damage in fetus, choroid plexus cysts, not applicable or unspecified; K42.9 Umbilical hernia without obstruction or gangrene; K59.09 Other constipation; O69.81X0 Labor and delivery complicated by cord around neck, without compression, not applicable or unspecified; O99.62 Diseases of the digestive system complicating childbirth; O75.89 Other specified complications of labor and delivery
CPT/HCPCS: 85027; 86850; 86900; 86901; J3490

== ENCOUNTER 2022-10-20 11:27 | Outpatient (REF) | payer MEDICAID, SELFPAY ==
--- NOTE | 2022-10-20 10:45 | PAPFT_PTH ---
PATIENT: Anabel Joyner LOC: [facility] U#:[id number] AGE/SX: 32/F ROOM: RE10/20/[address]: Philomena Li CNM : 1990 BED: DIS: 10/20/2022 SPEC #: [id number] RECD: 10/20/22 13:29 STATUS: GEE REDora #: [id number] NICHOLAS: 10/20/22 10:[address]: Philomena Li DEPT: [facility] Cytology RECD BY: Debra Noel Tissues: 1 - CX/ENDOCX FOR PAP SMEARS Procedures: PAP THIN PREP/UVM Screening HPV DNA PROBE Comments: [id number]
== END 2022-10-20 11:28 | disposition home or self-care (01) ==
LOC: LBN 11:27
PROVIDERS: PCP Nurse Practitioner Family; Visit Provider Advanced Practice Midwife
DX: Z12.4 Encounter for screening for malignant neoplasm of cervix (principal); Z11.51 Encounter for screening for human papillomavirus (HPV)
CPT/HCPCS: 88142; 87624

== ENCOUNTER 2022-10-27 02:09 | Outpatient (CLI) | payer MEDICAID, SELFPAY ==
[2022-10-27 16:58] LABS: HCT 43.6 % (36.0-46.0); HGB 13.7 g/dL (11.2-15.7); MCH 31.8 pg (27.0-33.0); MCHC 31.4 % (32.0-36.0); MCV 101 fL (80-95); MPV 11.1 fL (8.0-11.0); Platelet Count 165 10^3/uL (130-400); RBC 4.31 10^6/uL (3.93-5.22); RDW 13.1 % (11.7-14.6); RDW-SD 48.8 fL; WBC 6.33 10^3/uL (4.4-10.8)
== END 2022-10-27 02:10 | disposition home or self-care (01) ==
LOC: LBO 02:09
PROVIDERS: PCP Nurse Practitioner Family; Visit Provider Advanced Practice Midwife
DX: R71.8 Other abnormality of red blood cells; Z39.2 Encounter for routine postpartum follow-up
CPT/HCPCS: 36415; 85027

== ENCOUNTER 2023-07-16 13:36 | Outpatient (REF) | payer MEDICAID, SELFPAY ==
[2023-07-16 15:33] LABS: Abs Immature Grans 0.02 10^3/uL (0.0-0.06); Absolute Basophil Count 0.05 10^3/uL (0.0-0.2); Absolute Lymphocyte Count 1.32 10^3/uL (1.2-3.4); Absolute Monocyte Count 0.52 10^3/uL (0.1-0.8); Absolute Neutrophil Count 4.37 10^3/uL (1.2-6.7); Basophils % 0.8; Eosinophils % 4.6; HCT 40.5 % (36.0-46.0); HGB 13.7 g/dL (11.2-15.7); Immature Grans % 0.3; Lymphocytes % 20.1; MCH 29.8 pg (27.0-33.0); MCHC 33.8 % (32.0-36.0); MCV 88 fL (80-95); MPV 11.4 fL (8.0-11.0); Monocytes % 7.9; Neutrophils % 66.3; Platelet Count 207 10^3/uL (130-400); RBC 4.59 10^6/uL (3.93-5.22); RDW 12.3 % (11.7-14.6); RDW-SD 39.6 fL; WBC 6.58 10^3/uL (4.4-10.8)
[2023-07-16 16:24] LABS: ALT 24 U/L (14-59); AST 17 U/L (15-37); Albumin 3.8 g/dL (3.4-5.0); Alkaline Phosphatase 78 U/L (46-116); Anion Gap 8.2 mmol/L (3-11); BUN 24 mg/dL (7-18); CO2 27.8 mmol/L (21.0-32.0); CREATININE 0.6 mg/dL (0.55-1.02); Calcium 8.9 mg/dL (8.5-10.1); Calculated LDL 130 mg/dL (<100); Chloride 106 mmol/L (98-107); Cholesterol 199 mg/dL (<200); Estimated GFR 119.97 (mL/min/1.73m2); Glucose 82 mg/dL (74-106); HDL Cholesterol 63 mg/dL (40-60); Hemoglobin A1C 5.3 % (<5.7); Potassium 4.3 mmol/L (3.5-5.1); Sodium 142 mmol/L (136-145); TSH 4.91 uIU/Ml (0.36-3.74); Total Protein 7.2 g/dL (6.4-8.2); Triglyceride 31 mg/dL (<150)
[2023-07-16 16:43] LABS: FREE T4 0.88 ng/dL (0.76-1.46)
== END 2023-07-16 13:37 | disposition home or self-care (01) ==
LOC: NCHCN 13:36
PROVIDERS: PCP Nurse Practitioner Family; Visit Provider Nurse Practitioner Family
DX: Z13.1 Encounter for screening for diabetes mellitus (principal); Z83.49 Family history of other endocrine, nutritional and metabolic diseases; Z13.0 Encounter for screening for diseases of the blood and blood-forming organs and certain disorders involving the immune mechanism; Z13.228 Encounter for screening for other metabolic disorders
CPT/HCPCS: 80053; 80061; 83036; 84439; 84443; 85025

== ENCOUNTER 2024-07-16 19:11 | Outpatient (REF) | payer BC, SELFPAY ==
[2024-07-16 20:10] LABS: HCT 42.1 % (36.0-46.0); HGB 13.8 g/dL (11.2-15.7); MCH 29.6 pg (27.0-33.0); MCHC 32.8 % (32.0-36.0); MCV 90 fL (80-95); MPV 11.5 fL (8.0-11.0); Platelet Count 219 10^3/uL (130-400); RBC 4.67 10^6/uL (3.93-5.22); RDW 12.9 % (11.7-14.6); RDW-SD 42.3 fL; WBC 7.43 10^3/uL (4.4-10.8)
[2024-07-16 20:18] LABS: ALT 24 U/L (14-59); AST 17 U/L (15-37); Albumin 4.1 g/dL (3.4-5.0); Alkaline Phosphatase 71 U/L (46-116); Anion Gap 10.5 mmol/L (3-11); BUN 23 mg/dL (7-18); Bilirubin, Total 1.2 mg/dL (0.2-1.0); CO2 27.5 mmol/L (21.0-32.0); CREATININE 0.6 mg/dL (0.55-1.02); Calcium 8.9 mg/dL (8.5-10.1); Calculated LDL 94 mg/dL (<100); Chloride 105 mmol/L (98-107); Cholesterol 162 mg/dL (<200); Estimated GFR 119.23 (mL/min/1.73m2); Glucose 77 mg/dL (74-106); HDL Cholesterol 60 mg/dL (>or=50); Potassium 4.3 mmol/L (3.5-5.1); Sodium 143 mmol/L (136-145); Total Protein 7.2 g/dL (6.4-8.2); Triglyceride 40 mg/dL (<150)
[2024-07-16 21:20] LABS: Hemoglobin A1C 5.3 % (<5.7)
== END 2024-07-16 19:12 | disposition home or self-care (01) ==
LOC: NCHCN 19:11
PROVIDERS: PCP Nurse Practitioner Family; Visit Provider Nurse Practitioner Family
DX: E02 Subclinical iodine-deficiency hypothyroidism (principal); Z13.1 Encounter for screening for diabetes mellitus; Z13.220 Encounter for screening for lipoid disorders
CPT/HCPCS: 80053; 80061; 85027; 83036; 84443